=== PATIENT | female | born 1965 | race African-American/Black ===

== ENCOUNTER 2018-05-04 18:27 | Emergency (ER) | payer OTHER ==
[2018-05-04 23:36] LABS: BASO % 0.5 % (0.0-1.0); EOS # 0.3 10^3/uL (0.0-0.50); EOS % 4.5 % (0.0-3.0); HEMATOCRIT 40.5 % (36.0-47.0); HEMOGLOBIN 13.1 g/dl (12.0-15.5); IMMATURE GRANULOCYTE % 0.3 % (0-3.0); LYMPH # 1.8 10^3/uL (1.5-4.5); LYMPH % 30.1 % (24.0-44.0); MEAN CORPUSCULAR HEMOGLOBIN 27.9 pg (27.0-33.0); MEAN CORPUSCULAR HGB CONC 32.3 g/dl (32.0-36.5); MEAN CORPUSCULAR VOLUME 86.4 fl (80.0-96.0); MONO # 0.4 10^3/uL (0.0-0.8); MONO % 6.2 % (0.0-5.0); NEUTROPHILS # 3.5 10^3/uL (1.8-7.7); NEUTROPHILS % 58.4 % (36.0-66.0); PLATELET COUNT, AUTOMATED 278 10^3/uL (150-450); RED BLOOD COUNT 4.69 10^6/uL (4.00-5.40); RED CELL DISTRIBUTION WIDTH 12.5 % (11.5-14.5)
[2018-05-04 23:57] LABS: ANION GAP 8 MEQ/L (8-16); BLOOD UREA NITROGEN 16 MG/DL (7-18); CALCIUM LEVEL 8.9 MG/DL (8.5-10.1); CARBON DIOXIDE LEVEL 26 MEQ/L (21-32); CHLORIDE LEVEL 108 MEQ/L (98-107); CK-MB VALUE MASS < 1.0 NG/ML (<3.6); CPK CREATINE PHOSPHOKINASE 98 U/L (26-192); CREATININE FOR GFR 0.86 MG/DL (0.55-1.30); GLOMERULAR FILTRATION RATE > 60.0 (>51); GLUCOSE, FASTING 81 MG/DL (70-100); MB/CK RELATIVE INDEX 1.02 (< OR =4); NT-PRO BNP 47 PG/ML (<125); POTASSIUM SERUM 3.9 MEQ/L (3.5-5.1); SODIUM LEVEL 142 MEQ/L (136-145); TROPONIN I < 0.02 NG/ML (< 0.10)
== END 2018-05-05 00:31 | disposition home or self-care (01) ==
LOC: M ED 05-05 00:31
DX: R06.02 Shortness of breath (principal)
CPT/HCPCS: 71046

== ENCOUNTER → 2018-09-24 | Outpatient (CLI) | payer OTHER ==
[~2018-09-24] MED LIST: BENZ-18 PO; CETI10TA PO; LIDOCAINE 2% INJ 100 MG/5 ML SDV (FOR ANES.) As Ordered ONE; MONT10TA2 PO; PROPOFOL 500 MG/50 ML VIAL As Ordered ONE; VITA100066 PO; VITA500T PO
--- NOTE | 2018-09-30 16:33 | REP ---
BILATERAL MAMMOGRAM WITH RIGHT BREAST ULTRASOUND: Bilateral mammography was performed in the MLO and CC projections. Patient complains of right breast pain from a prior benign lumpectomy. The surgical scar is marked on the skin with a linear marker. Patient has also had a prior benign left lumpectomy. There is a family history of breast cancer in mother and 7 maternal aunts. Tyrer-zick lifetime risk of breast cancer 21.6%. MLO and ML views of bilateral breasts are performed. Comparison is made with prior study 01/17/2014 from an outside institution. There is mild fibroglandular tissue bilaterally. I see no mass or architectural distortion. No clustered microcalcifications are seen. Real-time sonographic evaluation of the right breast was performed at the site of pain in the region of 1 o'clock. No cystic or solid nodule is seen and I see no other sonographic abnormality. IMPRESSION: ACR 2 benign. No mass or clustered microcalcifications. There is no mammographic or sonographic evidence of a mass at the site of pain in the right breast at the site of the prior benign lumpectomy at 1 o'clock. BIRADS 2: BI-RADS/ACR category 2 mammogram. Benign Findings. Given the patient's elevated lifetime risk of breast cancer, [employer] recommends yearly supplemental screening MRI of the breasts. This mammogram was interpreted with the aid of an FDA-approved computer-aided detection system. The patient states she has not had a clinical breast exam in over a year. The patient letter being requested is M2. Electronically Signed by Augusto Irby MD 09/30/2018 08:17 P
== END ==
LOC: M RAD 11:56
PROVIDERS: ATTEND Family Medicine
DX: Z12.31 Encounter for screening mammogram for malignant neoplasm of breast (principal)

== ENCOUNTER 2018-09-28 11:02 | Day surgery (SDC) | payer OTHER ==
[~2018-09-28] VITALS: Ht 175.3 cm; Wt 76.2 kg
[~2018-09-28 11:02] MED LIST changes: +PROPOFOL 200 MG/20 ML VIAL As Ordered ONE; -PROPOFOL 500 MG/50 ML VIAL As Ordered ONE
[2018-09-28] MEDS ORDERED: PROPOFOL 200 MG/20 ML VIAL As Ordered ONE (12:50)
--- NOTE | 2018-09-28 12:56 | ROOR ---
Patient Name: Jackie Mcbride Procedure Date: 09/28/2018 12:53 PM Date of : 1965 Age: 53 Room: [id number] Gender: Female Note Status: Finalized Procedure: Colonoscopy Indications: Screening for colorectal malignant neoplasm Providers: Jeanmarie COVARRUBIAS MD Referring MD: ЮЛИЯ IQBAL MD Requesting Provider: Medicines: Monitored Anesthesia Care Complications: No immediate complications. Procedure: Pre-Anesthesia Assessment: - The heart rate, respiratory rate, oxygen saturations, blood pressure, adequacy of pulmonary ventilation, and response to care were monitored throughout the procedure. The Colonoscope was introduced through the anus and advanced to the terminal ileum, with identification of the appendiceal orifice and IC valve. The colonoscopy was performed without difficulty. The patient tolerated the procedure well. The quality of the bowel preparation was good. Findings: The perianal and digital rectal examinations were normal. The entire examined colon appeared normal on direct and retroflexion views. Impression: - Small internal hemorrhoids. - The colon is normal on direct and retroflexion views. - No specimens collected. Recommendation: - Repeat colonoscopy in 10 years for screening purposes. Jeanmarie Covarrubias MD Jeanmarie COVARRUBIAS MD 09/28/2018 12:56:37 PM This report has been signed electronically. Number of Addenda: 0 Note Initiated On: 09/28/2018 12:53 PM Estimated Blood Loss: Estimated blood loss: none.
[2018-09-28] MEDS ORDERED: NS 1,000 ML IV ONE (13:00)
[2018-09-28 13:50] VITALS: BP 132/76
== END 2018-09-28 14:21 | disposition home or self-care (01) ==
LOC: M OPP 11:02
PROVIDERS: ATTEND Internal Medicine Gastroenterology
DX: Z12.11 Encounter for screening for malignant neoplasm of colon (principal); Z86.010 Personal history of colon polyps; D12.2 Benign neoplasm of ascending colon; Z80.3 Family history of malignant neoplasm of breast; Z80.0 Family history of malignant neoplasm of digestive organs